=== PATIENT | female | born 1995 | race American Indian/Alaskan Native ===

== ENCOUNTER 2018-10-28 21:54 | Emergency (ER) | payer SELFPAY ==
[2018-10-28 22:10] VITALS: BP 120/81; PULSE 82; RESP 18; TEMP 98; O2SAT 100
[2018-10-28 22:57] LABS: HCG,QUALITATIVE URINE NEGATIVE (NEGATIVE)
[2018-10-28 23:02] LABS: SQUAMOUS EPITHIAL < 1 /hpf (0-5); URINE BILIRUBIN NEGATIVE (NEGATIVE); URINE BLOOD 2+ (NEGATIVE); URINE CLARITY Clear (Clear); URINE COLOR Straw (YELLOW); URINE GLUCOSE (UA) NORMAL (Normal); URINE LEUKOCYTE ESTERASE NEG Leu/uL (Negative); URINE PROTEIN NEGATIVE (NEGATIVE); URINE UROBILINOGEN NORMAL mg/dL (0.2-1.0)
--- NOTE | 2018-10-29 00:01 | C.PDOC ---
History Of Present Illness 23 year old female presents to the ED c/o yellowish/green vaginal discharge for the past 4-5 days. Patient reports she tried using monistat with no relief to symptoms. Patient states still felling itch. Patient has her menses now. Patient denies fever, chills, nausea, vomit, diarrhea, back pain, abdominal pain, rash, dysuria, hematuria. Time Seen by Provider: 10/28/18 22:39 Chief Complaint (Nursing): Female Genitourinary History Per: Patient History/Exam Limitations: no limitations Onset/Duration Of Symptoms: Days Current Symptoms Are (Timing): Still Present Quality Of Discomfort: Other Associated Symptoms: denies: Nausea, Vomiting, Urinary Symptoms Recent travel outside of the [place]: No Additional History Per: Patient Abnormal Vaginal Bleeding: No Past Medical History Reviewed: Historical Data, Nursing Documentation, Vital Signs Vital Signs: Last Vital Signs Temp 98 F 10/28/18 22:00 Pulse 82 10/28/18 22:00 Resp 18 10/28/18 22:00 BP 120/81 10/28/18 22:00 Pulse Ox 100 10/28/18 22:00 Primary Care Provider: FAMILY PROVIDER,NO - Medical History PMH: No Chronic Diseases Surgical History: No Surg Hx Family History: States: Unknown Family Hx - Social History Hx Alcohol Use: No Hx Substance Use: No - Immunization History Hx Tetanus Toxoid Vaccination: No Hx Influenza Vaccination: No Hx Pneumococcal Vaccination: No Review Of Systems Constitutional: Negative for: Fever, Chills Cardiovascular: Negative for: Chest Pain Respiratory: Negative for: Shortness of Breath Gastrointestinal: Negative for: Nausea, Vomiting, Abdominal Pain Genitourinary: Positive for: Vaginal Discharge. Negative for: Dysuria, Hematuria, Vaginal Bleeding Skin: Negative for: Rash Neurological: Negative for: Weakness, Numbness Physical Exam - Physical Exam Appears: Non-toxic, No Acute Distress Skin: Normal Color, Warm, Dry Head: Atraumatic, Normacephalic Eye(s): bilateral: Normal Inspection Oral Mucosa: Moist Neck: Normal ROM, Supple Chest: Symmetrical Cardiovascular: Rhythm Regular Respiratory: Normal Breath Sounds, No Rales, No Rhonchi, No Wheezing Gastrointestinal/Abdominal: Soft, No Tenderness, No Distention Pelvic: Normal External Exam, Vaginal Bleeding (moderate), No Vaginal Discharge (not seen), No Cervical Motion Tenderness, No Adnexal Tenderness, Other (Chaperones by Ana Beck CP) Extremity: Normal ROM Neurological/Psych: Oriented x3, Normal Speech, Normal Cognition Gait: Steady ED Course And Treatment - Laboratory Results Lab Results: Urine Color Straw (YELLOW) 10/28/18 22:43 Urine Clarity Clear (Clear) 10/28/18 22:43 Urine pH 7.0 (5.0-8.0) 10/28/18 22:43 Ur Specific [place] 1.010 (1.003-1.030) 10/28/18 22:43 Urine Protein Negative mg/dL (NEGATIVE) 10/28/18 22:43 Urine Glucose (UA) Normal mg/dL (Normal) 10/28/18 22:43 Urine Ketones Negative mg/dL (NEGATIVE) 10/28/18 22:43 Urine Blood 2+ (NEGATIVE) H 10/28/18 22:43 Urine Nitrate Negative (NEGATIVE) 10/28/18 22:43 Urine Bilirubin Negative (NEGATIVE) 10/28/18 22:43 Urine Urobilinogen Normal mg/dL (0.2-1.0) 10/28/18 22:43 Ur Leukocyte Esterase Neg Trung/uL (Negative) 10/28/18 22:43 Urine WBC (Auto) 1 /hpf (0-5) 10/28/18 22:43 Urine RBC (Auto) 1 /hpf (0-3) 10/28/18 22:43 Ur Squamous Epith Cells < 1 /hpf (0-5) 10/28/18 22:43 Urine HCG, Qual Negative (NEGATIVE) 10/28/18 22:43 Urine HCG, Qual Negative (NEGATIVE) 10/28/18 22:43 O2 Sat by Pulse Oximetry: 100 (ON RA) Pulse Ox Interpretation: Normal Medical Decision Making Medical Decision Making: Plan: * Diflucan 200 mg PO * Flagyl 500 mg PO * UA Disposition - Disposition Referrals: [facility] [Outside] [facility] [Outside] Disposition: HOME/ ROUTINE Disposition Time: 23:46 Condition: GOOD Additional Instructions: Follow up with the OB clinic within 1-2 days. Return if worsened. Prescriptions: Fluconazole [Diflucan] 150 mg PO ONCE #2 tab metroNIDAZOLE [Flagyl] 500 mg PO BID #14 tab Instructions: Bacterial Vaginosis (DC) Forms: [employer] (Amharic) - Clinical Impression Clinical Impression: Bacterial vaginosis - PA / MANAGER BUSINESS INFORMATION / Resident Statement MD/DO has reviewed & agrees with the documentation as recorded. - Scribe Statement The provider has reviewed the documentation as recorded by the Scribe Farhad Mackay All medical record entries made by the Scribe were at my direction and personally dictated by me. I have reviewed the chart and agree that the record accurately reflects my personal performance of the history, physical exam, medical decision making, and the department course for this patient. I have also personally directed, reviewed, and agree with the discharge instructions and disposition.
== END 2018-10-29 00:05 | disposition home or self-care (01) ==
LOC: C.ER 21:54
DX: N76.0 Acute vaginitis (principal)